=== PATIENT | female | born 1995 | race Caucasian/White ===

== ENCOUNTER 2019-12-16 07:27 | Inpatient (IN) | payer OTHER ==
--- NOTE | 2019-12-12 10:24 | HPE ---
DATE OF ADMISSION: 12/16/2019 This lady is a 24-year-old 5, para 2, last menstrual period (LMP) 11/16/2018, estimated date of confinement (EDC) 12/23/2019 for elective repeat section 12/16/2019. PAST HISTORY: 11/2012, at term, section for nonreassuring heart tones, male, 7 pounds 7 ounces. November 2014, a term section scheduled, female 6 pounds 12 ounces. 2014, a therapeutic with dilation and curettage (D and C). 6 weeks in 2019 had questionable spontaneous . She is group B streptococcus (GBS) positive in her urine. Has allergies to PENICILLIN and AMOXICILLIN. Has anxiety and depression as risk factors. Is on Zoloft. Her body mass index (BMI) is 32.9. She is Rh negative. LABORATORY VALUES: Show she is O negative, HIV negative, hepatitis negative, rapid plasma reagin (RPR) negative, rubella immune, varicella immune. Pap is not available. Urine was positive for GBS. Gonorrhea and chlamydia were negative. 1-hour glucose was 123. Her GBS as mentioned was positive in her urine. Repeat HIV was negative on 10/21/2019. Presently, her blood pressure is 128/80, respirations are 18, pulse is 90. She weighs 190 pounds. Prepregnancy weight was 180. We reviewed the risks and benefits of section, including hemorrhage, infection, perforation, , reoperation, remote possibility of hysterectomy, remote possibility of blood transfusion, remote possibility of laceration, and admission to the intensive care unit (NICU). The patient expressed understanding of all concerns. We had a 30-minute discussion. Signed the consent form. All questions were answered. control is undecided at the present time. The rest of the examination unremarkable. She is normocephalic, atraumatic. Neck: Full range of motions. Pupils equal and reactive to light. Category one strip. Distal pulses symmetric. No evidence of deep venous thrombosis (DVT), pulmonary embolism (PE), or superficial phlebitis. Chest is clear bilaterally to bases. No wheezes or rhonchi. Abdomen: Soft. Symphysis fundus height is appropriate. Four-quadrant bowel sounds are noted. No rashes, lesions, or pruritus. No arthralgia or myalgia. No complaint of joint pain. No complaint of cough, wheezes, shortness of breath, or dyspnea on exertion. No bleeding. Neuro complete. No urgency, frequency. No nausea, vomiting, diarrhea, constipation. No diabetic or heat or cold issues. 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 No history of sexually transmitted disease (STD). Past medical unremarkable. Surgical is unremarkable. Family history is noncontributory. She does not smoke, drink, or abuse drugs. She is to a soldier. No domestic violence. ALLERGIES: To PENICILLIN and AMOXICILLIN. We are awaiting intravenous (IV) antibiotics preoperatively and a scheduled section for 12/16/2019.
[~2019-12-16] VITALS: Ht 157.5 cm; Wt 86.1 kg
[~2019-12-16 07:27] MED LIST: PRENTAB9 PO
[2019-12-16] MEDS ORDERED: LR 1,000 ML IV SCH ×2 (07:39→12:00)
[2019-12-16] MEDS ORDERED: BICITRA 30ML SOLN UDC PO ONE (07:45)
[2019-12-16] MEDS ORDERED: LACTATED RINGER'S 1000 ML IV ONE (07:45)
[2019-12-16] MEDS ORDERED: AZITHROMYCIN INJ 500 MG, VIAL MATE ADAPTER 1 EACH in D5W 250 ML IV ONE (07:45)
[2019-12-16 07:48] VITALS: BP 128/85
[2019-12-16] MEDS ORDERED: ACETAMINOPHEN 650 MG SUPP PR ONE (08:00)
[2019-12-16] MEDS ORDERED: VANCOMYCIN HCL 1,000 MG, VIAL MATE ADAPTER 1 EACH in D5W 250 ML IV SCH (08:00)
[2019-12-16] MEDS ORDERED: BUPIVACAINE HCL 0.25% 10ML VIAL SC ONE (08:00)
[2019-12-16] MEDS ORDERED: ZOLO50TA PO (08:12)
[2019-12-16 08:18] VITALS: BP 111/77
[2019-12-16 08:47] LABS: HEMATOCRIT 31.4 % (36.0-47.0); HEMOGLOBIN 9.9 g/dl (12.0-15.5); MEAN CORPUSCULAR HEMOGLOBIN 27.6 pg (27.0-33.0); MEAN CORPUSCULAR HGB CONC 31.5 g/dl (32.0-36.5); MEAN CORPUSCULAR VOLUME 87.5 fl (80.0-96.0); PLATELET COUNT, AUTOMATED 128 10^3/uL (150-450); RED BLOOD COUNT 3.59 10^6/uL (4.00-5.40); WHITE BLOOD COUNT 7.2 10^3/uL (4.0-10.0)
[2019-12-16] MEDS: SERTRALINE HCL 50 MG TAB PO SCH (09:00)
[2019-12-16] MEDS ORDERED: MORPHINE PRES-FREE INJ 10 MG/10 ML VIAL (J2274) As Ordered ONE (09:25)
[2019-12-16] MEDS ORDERED: ePHEDrine SULFATE 25 MG/5 ML(5MG/ML) SYRINGE As Ordered ONE (09:25)
[2019-12-16] MEDS ORDERED: PHENYLephrine HCL 500 MCG/5 ML (100MCG/ML) SYRINGE (J2370) As Ordered ONE (09:25)
[2019-12-16] MEDS ORDERED: OXYTOCIN 30 UNITS IN 0.9% NaCl 500ML IV BAG (J2590) As Ordered ONE ×2 (09:26→11:46)
[2019-12-16] MEDS ORDERED: OXYTOCIN INJ 10 UNITS/ML VIAL (J2590) As Ordered ONE (09:26)
[2019-12-16] MEDS ORDERED: diphenhydrAMINE 50MG/ML VIAL (J1200) IV PRN (09:58)
[2019-12-16] MEDS ORDERED: METOCLOPRAMIDE INJ 10MG/2ML VIAL (J2765 PER 1) IV PRN (09:58)
[2019-12-16] MEDS ORDERED: NALOXONE INJ 0.4MG/1ML VIAL (J2310 PER 1MG) IV PRN ×2 (09:58)
[2019-12-16] MEDS ORDERED: NALBUPHINE HCL 10 MG/ML AMP (J2300) IV PRN ×2 (09:58→12:00)
[2019-12-16] MEDS ORDERED: ONDANSETRON 4MG/2ML VIAL IV PRN ×2 (09:58→12:00)
[2019-12-16] MEDS ORDERED: ONDANSETRON 4MG/2ML VIAL As Ordered ONE (10:14)
[2019-12-16] MEDS ORDERED: KETOROLAC 60 MG/2 ML VIAL As Ordered ONE (10:14)
[2019-12-16 10:38] LABS: CORD GAS HCO3 A 23.2 MEQ/L; CORD GAS O2 SAT A 16.7 %; CORD GAS PCO2 A 45.4 mmHg; CORD GAS PH A 7.326 UNITS; CORD GAS PO2 A 11.5 mmHg; CORD GAS SBC A 20.1 MEQ/L; CORD GAS TCO2 A 24.6 MEQ/L
[2019-12-16 10:39] LABS: CORD GAS ABE V -6.3; CORD GAS HCO3 V 18.3 MEQ/L; CORD GAS O2 SAT V 41.3 %; CORD GAS PH V 7.349 UNITS; CORD GAS PO2 V 18.1 mmHg; CORD GAS SBC V 18.1 MEQ/L; CORD GAS TCO2 V 19.4 MEQ/L
[2019-12-16] MEDS ORDERED: METHYLERGONOVINE MALEATE 0.2 MG TAB PO PRN (11:30)
[2019-12-16] MEDS ORDERED: OXYTOCIN DRIP 30 UNITS in IV 1 EA IV ONE (11:30)
[2019-12-16] MEDS ORDERED: RHOGAM 300 MCG (1500 IU) INJ (J2790) IM SCH (11:30)
[2019-12-16] MEDS ORDERED: ACETAMINOPHEN TAB 650MG DOSE (2X325MG) PO PRN (11:30)
[2019-12-16] MEDS ORDERED: ANUSOL HC CREAM 30GM TOP PRN (11:30)
[2019-12-16] MEDS ORDERED: DOCUSATE SODIUM 100 MG CAP PO PRN (11:30)
[2019-12-16] MEDS ORDERED: ACETAMINOPHEN 500 MG TAB PO PRN (11:30)
[2019-12-16] MEDS ORDERED: MEASLES,MUMPS,RUBELLA VACCINE INJ (MMR-II) (90707) SC SCH (11:30)
[2019-12-16] MEDS ORDERED: MOM 30ML SUSPENSION UDC PO PRN (11:30)
[2019-12-16] MEDS ORDERED: fentaNYL 100 MCG/2 ML INJECTION (J3010) As Ordered ONE (11:49)
[2019-12-16] MEDS: fentaNYL 100 MCG/2 ML INJECTION (J3010) IV PRN ×4 (11:54→12:39)
[2019-12-16 15:17] VITALS: BP 105/58
[2019-12-16 16:15] VITALS: BP 102/59
[2019-12-16] MEDS: LR 1,000 ML IV SCH ×2 (17:05→19:58)
[2019-12-16] MEDS: KETOROLAC 30 MG/ML 1ML VIAL IV SCH ×2 (17:05→23:07)
[2019-12-16 18:10] VITALS: BP 102/54
[2019-12-16] MEDS ORDERED: LR 500 ML IV ONE (18:30)
[2019-12-16] MEDS: PERCOCET 5MG/325MG TAB PO PRN (20:51)
[2019-12-16 22:00] VITALS: BP 117/56
[2019-12-17 02:00] VITALS: BP 118/63
[2019-12-17] MEDS: KETOROLAC 30 MG/ML 1ML VIAL IV SCH (05:01)
[2019-12-17 06:00] VITALS: BP 115/59
[2019-12-17 07:38] LABS: HEMATOCRIT 26.8 % (36.0-47.0); HEMOGLOBIN 8.5 g/dl (12.0-15.5); MEAN CORPUSCULAR HEMOGLOBIN 28.1 pg (27.0-33.0); MEAN CORPUSCULAR HGB CONC 31.7 g/dl (32.0-36.5); MEAN CORPUSCULAR VOLUME 88.4 fl (80.0-96.0); PLATELET COUNT, AUTOMATED 127 10^3/uL (150-450); RED BLOOD COUNT 3.03 10^6/uL (4.00-5.40); WHITE BLOOD COUNT 5.9 10^3/uL (4.0-10.0)
[2019-12-17] MEDS: PRENATAL VITAMINS CHEWABLE TABLET PO SCH (08:30)
[2019-12-17] MEDS: PERCOCET 5MG/325MG TAB PO PRN ×3 (08:30→20:33)
[2019-12-17 10:00] VITALS: BP 103/59
[2019-12-17] MEDS: SERTRALINE HCL 50 MG TAB PO SCH (11:00)
[2019-12-17] MEDS ORDERED: IBUPROFEN 600 MG TAB PO PRN (13:00)
[2019-12-17 14:00] VITALS: BP 107/63
[2019-12-17] MEDS: IBUPROFEN 800 MG TAB PO PRN (17:57)
[2019-12-17 18:00] VITALS: BP 113/71
[2019-12-17 22:00] VITALS: BP 102/67
[2019-12-18] MEDS: PERCOCET 5MG/325MG TAB PO PRN ×2 (03:36→08:28)
--- NOTE | 2019-12-18 04:13 | IPN ---
DATE: 12/17/2019 day #1 and postoperative day #1. This patient is a 5, para 3, had a repeat section of a live male infant, 7 pounds 10 ounces, 3490 grams scores of 9 and 9 at one and five minutes, respectively. Arterial pH 7.32, base excess -3.0. Venous pH 7.34, base excess -6.3. On her first day, we discussed phlebitis, cystitis, mastitis, endometritis, and cellulitis, diet, exercise, pain management, perineal, breast, and wound care. On examination today, the abdomen is soft. Uterus 2 below. Lochia is moderate. Four quadrant bowel sounds are noted. Incision is clean and dry. She has no rashes, lesions, or pruritus. No arthralgia, myalgia. No complaint of joint pain. No complaint of cough, wheeze, shortness of breath, or dyspnea on exertion. Richardson catheter was removed, and she has already voided. Blood pressure today is 118/63, respirations 18, pulse 78, temperature is 97.3. Her admitting hemoglobin was 9.9, hematocrit 31.4, and platelets were 128. We are awaiting her day #1 hemoglobin. She is , doing well, mobilizing, passing gas. Her plan of management is to discharge tomorrow with the baby. Medications were picked up at [facility]. All questions were answered. 20-minute discussion.
[2019-12-18 06:00] VITALS: BP 121/71
[2019-12-18] MEDS: PRENATAL VITAMINS CHEWABLE TABLET PO SCH (08:27)
[2019-12-18] MEDS: IBUPROFEN 800 MG TAB PO PRN (08:27)
[2019-12-18] MEDS: SERTRALINE HCL 50 MG TAB PO SCH (08:28)
[2019-12-18] MEDS ORDERED: DOCU100C16 PO (12:50)
[2019-12-18] MEDS ORDERED: PERCOCET PO (12:50)
[2019-12-18] MEDS ORDERED: PRENCHW PO (12:50)
[2019-12-18] MEDS ORDERED: IBUP80TA PO (12:50)
[2019-12-18] MEDS ORDERED: PROC1CRE5 TOP (12:50)
--- NOTE | 2019-12-20 13:33 | RO ---
DATE OF PROCEDURE: 12/16/2019 PREOPERATIVE DIAGNOSIS: Repeat section. POSTOPERATIVE DIAGNOSES: Repeat section, uterine window, adhesions right side and torn right rectus muscle repaired, body mass index (BMI) of 32.9 and GBS positive. OPERATION PROPOSED: Repeat section. OPERATION PERFORMED: Repeat section, noted adhesions right anterior abdominal wall, torn right rectus repaired. SURGEON: Dr. Jake Hayes. SLUBBER TENDER: Estiven Shinetnot for retraction, extraction and visualization, otherwise, procedure would not be completed. ANESTHESIA: ESTIMATED BLOOD LOSS: 300 mL DESCRIPTION OF PROCEDURE: After adequate time-out, prepped and draped in the supine position, Richardson catheter in the bladder draining clear urine. Acetaminophen suppository 1300 mg per rectum. Appropriate antibiotics 1 hour preoperative. A Pfannenstiel incision was made through the two previous Pfannenstiel incisions passing through abdominal layers securing hemostasis opening the peritoneal cavity. Prior to that we noticed the right rectus was torn but upon opening peritoneal cavity, she had adhesions thick from the right lower side all the way up underneath the symphysis pubis. All the way up to her diaphragm and then probably beyond. It did not cross the midline. They were thickened enough that we could not use the Mobius. There was also noted a uterine window, extensive, right across the lower segment. The bladder was reflected well down and we just opened the window with clear Liqua. We had 400 mL of amniotic fluid. The baby's head was floating and therefore we were required to stabilize it using the vacuum with one actual stabilization pressure and then with fundal pressure delivered a live male infant weighing 7 pounds 10 ounces, 3490 grams, of 9 and 9 at one and five minutes respectively. Arterial pH 7.32, base excess -3.0, venous pH 7.34, base excess -6.3. There was noted to be a cord around the neck times two lose. Baby on delivery had spontaneous meconium and voiding. Placenta was manually removed, three-vessel cord membranes and tissues intact. The uterus contracted well under Pitocin. The uterine contents were swept clean and the lower segment was oversewn in the usual fashion in two layers imbricating the second layer. With instrument and pad count correct, again we evaluated the adhesions. They seemed to be quite adherent up the right sidewall. We could not determine right tube or ovary at that area. We then went ahead and repaired the right rectus attempting to bring it with [id number] together and then bringing the left and right rectus together in order to give it some sort of stability. With that done, the fascia was closed with 0 Vicryl interrupted for subcu, Dexon to the skin, Marcaine 0.25%, 10 mL e and Telfa was placed. The patient was then sent to recovery in good condition.
--- NOTE | 2019-12-20 13:34 | DSES ---
DATE OF ADMISSION: 12/16/2019 DATE OF DISCHARGE: 12/18/2019 A 24-year-old 5, now para 3, admitted for repeat section, live male infant, 7 pounds 10 ounces, 3490 grams, scores of 9 and 9 at one and five minutes respectively. Arterial pH 7.32, base excess -3.0, venous pH 7.34, base excess -6.3. Her risk factors: She was group B Streptococcus (GBS) positive, that she had a running window at this time, multiple adhesions, torn left rectus muscle repaired and her body mass index (BMI) was 32.9. We discussed phlebitis, cystitis, mastitis, endometritis and cellulitis, diet, exercise pain management, pain in her breast and wound care. On examination today, she is normocephalic, atraumatic. Neck full range of motion. Pupils equal and reactive to light. Distal pulses symmetric. No evidence of deep venous thrombosis (DVT), pulmonary embolism (PE) or superficial phlebitis. Chest is clear bilaterally bases. No wheezes or rhonchi. No costovertebral angle (CVA) tenderness. Abdomen: Soft. Bowel sounds are noted. Incision is clean and dry. VITAL SIGNS: Blood pressure is 121/71, respirations are 18, pulse 99 and temperature 98.2. Admitting hemoglobin was 9.9, hematocrit 31.4 and platelets are 128. Discharge hemoglobin 8.5, hematocrit 26.8 and platelets are 127. We also discussed contraception. The patient is leaning towards the Mirena intrauterine contraceptive device (IUCD). She did have one previously; however, that one was in for three and half years and she started having problems and issues and had to have it removed. With her Zoloft, oral contraceptives or rings or gels may not be as effective as the Mirena IUCD. The patient will discuss this with her and at her 6 week checkup, will make a decision. She has a 2-week incision check and 6-week checkup. Medications are to be dispensed at [facility]. All questions were answered, 20-minute discussion. The patient discharged.
== END 2019-12-18 13:35 | disposition home or self-care (01) | DRG 773 ==
LOC: M LDI 07:27 → M OBS 13:49
PROVIDERS: ADMIT Obstetrics & Gynecology; ATTEND Obstetrics & Gynecology
PROC: 0KQK0ZZ Repair Right Abdomen Muscle, Open Approach (ICD-10-PCS; 2019-12-16)
PROC: 10D00Z1 Extraction of Products of Conception, Low, Open Approach (ICD-10-PCS; principal; 2019-12-16 09:45)
DX: O34.211 Maternal care for low transverse scar from previous cesarean delivery (principal); Z3A.39 39 weeks gestation of pregnancy; O99.824 Streptococcus B carrier state complicating childbirth; O71.89 Other specified obstetric trauma; Z37.0 Single live birth

== ENCOUNTER 2020-02-09 09:19 | Emergency (ER) | payer OTHER ==
[~2020-02-09] VITALS: Ht 157.5 cm; Wt 80.7 kg
[~2020-02-09 09:19] MED LIST changes: +DOCU100C16 PO; +IBUP80TA PO; +PERCOCET PO; +PRENCHW PO; +PROC1CRE5 TOP; +ZOLO50TA PO
[2020-02-09 11:20] LABS: BASO % 0.9 % (0.0-1.0); EOS # 0.3 10^3/uL (0.0-0.5); EOS % 5.7 % (0.0-3.0); HEMATOCRIT 37.2 % (36.0-47.0); HEMOGLOBIN 11.9 g/dl (12.0-15.5); LYMPH # 1.5 10^3/uL (1.5-5.0); LYMPH % 32.5 % (24.0-44.0); MEAN CORPUSCULAR HEMOGLOBIN 27.9 pg (27.0-33.0); MEAN CORPUSCULAR VOLUME 87.1 fl (80.0-96.0); MONO # 0.2 10^3/uL (0.0-0.8); MONO % 3.9 % (0.0-5.0); NEUTROPHILS # 2.6 10^3/uL (1.5-8.5); NEUTROPHILS % 56.8 % (36.0-66.0); PLATELET COUNT, AUTOMATED 248 10^3/uL (150-450); RED BLOOD COUNT 4.27 10^6/uL (4.00-5.40); WHITE BLOOD COUNT 4.6 10^3/uL (4.0-10.0)
[2020-02-09] MEDS ORDERED: KETOROLAC 30 MG/ML 1ML VIAL IM ONE (12:00)
[2020-02-09] MEDS ORDERED: BENZOCAINE 20% GEL 9GM TUBE (ANBESOL MAX STRENGTH) TOP ONE (12:00)
[2020-02-09] MEDS ORDERED: IBUP80TA PO (12:01)
[2020-02-09] MEDS ORDERED: CLIN150C14 PO (12:01)
[2020-02-09 12:37] VITALS: BP 158/100
== END 2020-02-09 12:39 | disposition home or self-care (01) ==
LOC: M ED 09:19
DX: K02.9 Dental caries, unspecified (principal); K05.6 Periodontal disease, unspecified; K08.89 Other specified disorders of teeth and supporting structures; F41.9 Anxiety disorder, unspecified; Z79.899 Other long term (current) drug therapy; Z88.0 Allergy status to penicillin; Z91.89 Other specified personal risk factors, not elsewhere classified
CPT/HCPCS: 80047; 84702; 85025; 96372; 99283; J1885

== ENCOUNTER 2021-06-09 14:45 | Inpatient (IN) | payer OTHER ==
[~2021-06-09] VITALS: Ht 157.5 cm; Wt 91.2 kg
[2021-06-09] VITALS (13 sets, daily range): BP systolic 114–141; BP diastolic 72–96
[~2021-06-09 14:45] MED LIST changes: +CLIN150C17 PO
[2021-06-09] MEDS ORDERED: LACTATED RINGER'S 1000 ML IV STA (15:09)
[2021-06-09] MEDS ORDERED: LR 1,000 ML IV SCH (15:10)
[2021-06-09] MEDS ORDERED: OXYTOCIN DRIP 30 UNITS in IV 1 EA IV PRN ×4 (15:10)
[2021-06-09] MEDS ORDERED: ACETAMINOPHEN 650 MG SUPP PR SCH (15:10)
[2021-06-09] MEDS ORDERED: CLINDAMYCIN 900 MG in IV 1 EA IV ONE (15:10)
[2021-06-09] MEDS ORDERED: BUPIVACAINE HCL 0.25% 10ML VIAL SC SCH (15:10)
[2021-06-09] MEDS ORDERED: GENTAMICIN 400 MG in IV FLUID PLACE HOLDER 1 EA IV ONE (15:10)
[2021-06-09] MEDS ORDERED: OXYTOCIN INJ 10 UNITS/ML VIAL (J2590) IV PRN (15:10)
[2021-06-09] MEDS ORDERED: METHYLERGONOVINE MALEATE 0.2 MG/ML VIAL (J2210) IM PRN (15:10)
[2021-06-09] MEDS ORDERED: BICITRA 30ML SOLN UDC PO ONE (15:10)
[2021-06-09] MEDS ORDERED: TUMS500C PO (15:15)
[2021-06-09] MEDS ORDERED: LEXA1TAB PO (15:15)
[2021-06-09] MEDS ORDERED: FERR325T81 PO (15:15)
[2021-06-09] MEDS ORDERED: PRENTAB9 PO (15:15)
[2021-06-09] MEDS ORDERED: HOME MED LIST COMPLETE! XX SCH (15:20)
[2021-06-09 15:56] LABS: HEMATOCRIT 29.1 % (36.0-47.0); HEMOGLOBIN 8.5 g/dl (12.0-15.5); MEAN CORPUSCULAR HEMOGLOBIN 23.7 pg (27.0-33.0); MEAN CORPUSCULAR HGB CONC 29.2 g/dl (32.0-36.5); MEAN CORPUSCULAR VOLUME 81.1 fl (80.0-96.0); PLATELET COUNT, AUTOMATED 146 10^3/uL (150-450); RED BLOOD COUNT 3.59 10^6/uL (4.00-5.40); WHITE BLOOD COUNT 7.2 10^3/uL (4.0-10.0)
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
[2021-06-09] MEDS ORDERED: GENTAMICIN 400 MG in D5W 50 ML IV ONE (17:00)
[2021-06-09] MEDS ORDERED: OXYTOCIN 30 UNITS IN 0.9% NaCl 500ML IV BAG (J2590) As Ordered ONE ×2 (19:58→21:48)
[2021-06-09] MEDS ORDERED: MORPHINE PRES-FREE INJ 10 MG/10 ML VIAL (J2274) As Ordered ONE (19:58)
[2021-06-09] MEDS ORDERED: ONDANSETRON 4MG/2ML VIAL IV PRN ×2 (20:17→22:05)
[2021-06-09] MEDS ORDERED: NALBUPHINE HCL 10 MG/ML AMP (J2300) IV PRN ×2 (20:17→22:05)
[2021-06-09] MEDS ORDERED: METOCLOPRAMIDE INJ 10MG/2ML VIAL (J2765 PER 1) IV PRN (20:17)
[2021-06-09] MEDS ORDERED: diphenhydrAMINE 50MG/ML VIAL (J1200) IV PRN (20:17)
[2021-06-09] MEDS ORDERED: NALOXONE INJ 0.4MG/1ML VIAL (J2310 PER 1MG) IV PRN ×2 (20:17)
[2021-06-09] MEDS ORDERED: ePHEDrine SULFATE 25 MG/5 ML(5MG/ML) SYRINGE As Ordered ONE (20:34)
[2021-06-09] MEDS ORDERED: dexameTHASONE 4 MG/ML 1ML VIAL (J1100 PER 1MG) As Ordered ONE (20:34)
[2021-06-09] MEDS ORDERED: ONDANSETRON 4MG/2ML VIAL As Ordered ONE ×2 (20:34→22:19)
[2021-06-09] MEDS ORDERED: PHENYLephrine 500MCG 5ML (100MCG/ML) SYRINGE As Ordered ONE (20:34)
[2021-06-09] MEDS ORDERED: OXYTOCIN INJ 10 UNITS/ML VIAL (J2590) As Ordered ONE (20:47)
[2021-06-09] MEDS ORDERED: KETOROLAC 60MG 2ML VIAL As Ordered ONE (20:56)
[2021-06-09 21:04] LABS: CORD GAS ABE A -6.8; CORD GAS HCO3 A 21.2 MEQ/L; CORD GAS O2 SAT A 40.7 %; CORD GAS PCO2 A 51.1 mmHg; CORD GAS PH A 7.236 UNITS; CORD GAS PO2 A 19.4 mmHg; CORD GAS SBC A 17.6 MEQ/L; CORD GAS TCO2 A 22.8 MEQ/L
[2021-06-09 21:05] LABS: CORD GAS ABE V -6.8; CORD GAS HCO3 V 18.9 MEQ/L; CORD GAS O2 SAT V 46.4 %; CORD GAS PCO2 V 39.2 mmHg; CORD GAS PH V 7.302 UNITS; CORD GAS PO2 V 20.1 mmHg; CORD GAS SBC V 17.7 MEQ/L; CORD GAS TCO2 V 20.1 MEQ/L
[2021-06-09] MEDS ORDERED: MEASLES,MUMPS,RUBELLA VACCINE INJ (MMR-II) (90707) SC SCH (21:45)
[2021-06-09] MEDS ORDERED: SIMETHICONE 80MG CHEW TAB PO PRN (21:45)
[2021-06-09] MEDS ORDERED: MOM 30ML SUSPENSION UDC PO PRN (21:45)
[2021-06-09] MEDS ORDERED: PERCOCET 5MG/325MG TAB PO PRN (21:45)
[2021-06-09] MEDS ORDERED: RHOGAM 300 MCG (1500 IU) INJ (J2790) IM SCH (21:45)
[2021-06-09] MEDS ORDERED: ACETAMINOPHEN 650 MG SUPP PR PRN (21:45)
[2021-06-09] MEDS ORDERED: ACETAMINOPHEN 500 MG TAB PO PRN (21:45)
[2021-06-09] MEDS ORDERED: DOCUSATE SODIUM 100MG CAPSULE PO PRN (21:45)
[2021-06-09] MEDS ORDERED: ACETAMINOPHEN TAB 650MG DOSE (2X325MG) PO PRN (21:45)
[2021-06-09] MEDS ORDERED: ANUSOL HC CREAM 30GM TOP PRN (21:45)
[2021-06-09] MEDS ORDERED: METHYLERGONOVINE MALEATE 0.2 MG TAB PO PRN (21:45)
[2021-06-09] MEDS ORDERED: HYDROMORPHONE HCL 0.5 MG/ 0.5 ML SYRINGE (J1170 PER 1) IV PRN (22:05)
[2021-06-09] MEDS ORDERED: MEPERIDINE INJ 25 MG/ML VIAL (J2175) IV PRN (22:05)
[2021-06-09] MEDS ORDERED: oxyCODONE 5MG TAB PO PRN (22:05)
[2021-06-09] MEDS ORDERED: fentaNYL 100 MCG/2 ML INJECTION (J3010) IV PRN (22:05)
[2021-06-09] MEDS ORDERED: fentaNYL 100 MCG/2 ML INJECTION (J3010) As Ordered ONE (22:19)
[2021-06-10] VITALS (9 sets, daily range): BP systolic 119–144; BP diastolic 58–84
[2021-06-10] MEDS: PERCOCET 5MG/325MG TAB PO PRN ×2 (00:02→08:31)
[2021-06-10] MEDS: KETOROLAC 30 MG/ML 1ML VIAL IV SCH ×3 (02:24→14:46)
[2021-06-10] MEDS ORDERED: LR 1,000 ML IV ONE ×2 (03:20→06:00)
[2021-06-10 06:28] LABS: HEMATOCRIT 28.9 % (36.0-47.0); HEMOGLOBIN 8.5 g/dl (12.0-15.5); MEAN CORPUSCULAR HEMOGLOBIN 23.8 pg (27.0-33.0); MEAN CORPUSCULAR HGB CONC 29.4 g/dl (32.0-36.5); PLATELET COUNT, AUTOMATED 160 10^3/uL (150-450); RED BLOOD COUNT 3.57 10^6/uL (4.00-5.40); WHITE BLOOD COUNT 13.5 10^3/uL (4.0-10.0)
--- NOTE | 2021-06-10 09:01 | IPN ---
PROGRESS NOTE DATE: 06/10/2021 SUBJECTIVE: day one. This is 25-year-old 6 now para 4 was admitted at 38 and 5 weeks gestation with a nonreassuring monitor strip and biophysical profile of 4 out of 8. She had a repeat section x4 of a live male 7 pounds 7 ounces (3360 grams), apgars 8 and 9 at one and five minutes respectively. Cord was around the neck x1. Arterial pH 7.23, base excess -6.8; venous pH 7.30, base excess -6.8. Her risk factors are that she was GBS positive treated appropriately. Previous section x3 with a window in her last section. 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 She had only an oral issue. She has significant depression and is on Lexapro and her BMI is 30.5. On her day one, her hemoglobin is 8.5, hematocrit 28.9. OBJECTIVE: Vital signs this morning blood pressure is 144/74, respirations 16, pulse 77, temperature 98.0. The rest of the examination is unremarkable. Normocephalic, atraumatic. Neck with full range of motion. Pupils equal and reactive to light. Distal pulses are symmetric. No evidence of DVT, PE, or superficial phlebitis. Chest is clear bilaterally to the bases. No wheezes or rhonchi. No CVA tenderness. Abdomen soft. Four quadrant bowel sounds are noted. Incision is clean and dry. Lochia is moderate. Uterus 2 below. No arthralgias, myalgias, or complaint of joint pain. No complaint of cough, wheeze, shortness of breath, or dyspnea on exertion. No nausea, vomiting, diarrhea, or constipation. No urgency. She is diuresing slowly. Urine is clear. ASSESSMENT/PLAN: Our plan of management today is to take out the Richardson catheter, allow her to shower, and anticipate home in 48 hours. Presently doing well. Pain is under control with pain medications. Safe to proceed.
--- NOTE | 2021-06-10 09:08 | RO ---
OPERATIVE NOTE DATE OF OPERATION: 06/09/2021 INDICATIONS: This lady is a 25-year-old 6, para 3, who was seen in the clinic for monitoring and had a nonreactive NST, had biophysical profile of 4/8, was brought for continuous monitoring, was having some uterine irritability and contractions and she was electively booked for repeat section x4 on 06/16/2021. However, with the previous history of uterine window, massive adhesions, uterine irritability, nonreactive NST and BPP of 4/8, we moved the section up to today. PREOPERATIVE DIAGNOSIS: Nonreactive strip, biophysical 4/8. POSTOPERATIVE DIAGNOSIS: Nonreactive strip, biophysical 4/8, adhesions and nuchal cord x1. OPERATION PROPOSED: Repeat section x4. OPERATION PERFORMED: Repeat section x4. SURGEON: Jake Hayes MD HEATING SYSTEMS INSTALLER: Daniella Soria CNM for extraction, retraction and visualization without which the procedure could not be completed. ANESTHESIA: Spinal plus local anesthetic for intraperitoneal procedures. ESTIMATED BLOOD LOSS: 500 mL. DESCRIPTION OF PROCEDURE: After adequate time out, prep and draped in supine position, Richardson catheter in bladder draining clear urine. Acetaminophen suppository 1300 mg per rectum, sequentials in place, appropriate antibiotics preoperatively, Pfannenstiel incision was made two fingersbreadth above the symphysis pubis in the previous area. Passing through the abdominal layers, the skin and subcutaneous tissue were fairly easy. The fascia was extremely hard to get through, required blunt and sharp dissection with the knee. We then were able to get in and found eventually the midline from previous surgery had a lot of scarification there. The right side of the anterior abdominal wall was adherent to the right side of the uterus. Eventually found the peritoneal cavity and we were able to identify bladder edge which was reflected down. There was some thinning in the lower segment but not enough to be significant at that point. There was inability to put the Mobius in because adhesions went from the upper end of the incision all the way up to the diaphragm and also on the right side from the right lower quadrant all the way up the right pericolic gutter. We were never able to see the ovary or the tube on the right side or on the left side similar to previous section in December of 2019. We made a low transverse incision into the uterus, artificial rupture of membranes, draining clear lochia. We used a forceps shoehorn technique to deliver livebirth male weighing 7 pounds 7 ounces, 3360 gm, Apgars of 8 and 9 at 1 and 5 minutes respectively. Cord around the neck x1. Arterial pH 7.23, base excess -6.8, venous pH 7.30, base excess -6.8. Placenta had three vessels, was significantly calcified, manual removal of the placenta. Uterus contracted well down on Pitocin. Sweeping the uterine cavity it was clear. We were able to see the upper edge, the lower edge was quite __ because of her previous three sections. However, we were able to identify the lower edge and we were able to palpate the Richardson bulb catheter, the urine itself was clear. We did a two layer closure on the hysterotomy incision, imbricating the second layer. We did some brief stitches for peritoneum to oversew that area. However, there were some raw areas on the right side of the uterus and piece of Surgicel was placed in order to smooth the surface out. With instrument and pad counts correct, the fascia was closed with two interrupted #0 Vicryl and then some subcutaneous stitches and then subcuticular, Marcaine 0.25% 10 mL to the incision site and Optifoam dressing. The patient and baby tolerated the procedure well.
[2021-06-10] MEDS: PRENATAL VITAMINS CHEWABLE TABLET PO SCH (09:25)
[2021-06-10] MEDS: ESCITALOPRAM OXALATE 10 MG TAB (LEXAPRO) PO SCH (10:55)
[2021-06-10] MEDS ORDERED: OXYC-517 PO (17:08)
[2021-06-10] MEDS ORDERED: COLA100C5 PO (17:08)
[2021-06-10] MEDS ORDERED: ACET1TAB55 PO (17:08)
[2021-06-11] MEDS: PERCOCET 5MG/325MG TAB PO PRN ×3 (00:52→17:28)
[2021-06-11 02:00] VITALS: BP 131/82
[2021-06-11 06:03] VITALS: BP 118/63
[2021-06-11] MEDS: IBUPROFEN 600MG TAB PO PRN ×2 (08:33→14:18)
[2021-06-11] MEDS: PRENATAL VITAMINS CHEWABLE TABLET PO SCH (08:33)
[2021-06-11] MEDS: ESCITALOPRAM OXALATE 10 MG TAB (LEXAPRO) PO SCH (08:33)
== END 2021-06-11 18:00 | disposition home or self-care (01) | DRG 773 ==
LOC: M LDI 14:45 → M OBS 23:53
PROVIDERS: ADMIT Obstetrics & Gynecology; ATTEND Obstetrics & Gynecology
PROC: 10D00Z1 Extraction of Products of Conception, Low, Open Approach (ICD-10-PCS; principal; 2021-06-09 19:30)
DX: O34.211 Maternal care for low transverse scar from previous cesarean delivery (principal); Z3A.38 38 weeks gestation of pregnancy; Z37.0 Single live birth; O76 Abnormality in fetal heart rate and rhythm complicating labor and delivery; O75.82 Onset (spontaneous) of labor after 37 completed weeks of gestation but before 39 completed weeks gestation, with delivery by (planned) cesarean section; O69.81X0 Labor and delivery complicated by cord around neck, without compression, not applicable or unspecified